=== PATIENT | male | born 1960 | race Caucasian/White ===

== ENCOUNTER 2023-02-20 06:57 | Day surgery (SDC) | payer MEDICAID ==
[~2023-02-20] VITALS: Ht 188 cm; Wt 77.1 kg
[2023-02-20] MEDS ORDERED: SIMETHICONE 40 MG/0.6 ML ML ONE (07:50)
[2023-02-20] MEDS ORDERED: MEPERIDINE 50 MG/ML VIAL ONE (07:51)
[2023-02-20] MEDS: fentaNYL CITRATE/PF 100 MCG/2 ML AMP ONE ×2 (09:31→09:34)
[2023-02-20] MEDS: MIDAZOLAM HCL 5 MG/5 ML VIAL ONE ×3 (09:31→09:36)
[2023-02-20 13:59] VITALS: BP_SYST 121
== END 2023-02-20 10:50 | disposition home or self-care (01) ==
LOC: SDS 06:57 → SMU 07:05 → SDS 10:50
PROVIDERS: ATTEND Internal Medicine Gastroenterology
DX: R10.9 Unspecified abdominal pain (principal); K29.70 Gastritis, unspecified, without bleeding; I10 Essential (primary) hypertension; E11.9 Type 2 diabetes mellitus without complications; Z79.899 Other long term (current) drug therapy; Z20.822 Contact with and (suspected) exposure to COVID-19
CPT/HCPCS: 43235; 87426; 82962; 36415; G0378; J2250; J3010; J2175